=== PATIENT | female | born 2000 | race Caucasian/White ===

== ENCOUNTER 2019-05-05 23:25 | Outpatient (CLI) | payer BC ==
[2019-05-06] VITALS: BP 118/72; PULSE 101; RESP 14; TEMP 98.2
[2019-05-06 00:12] LABS: Amorphous Sediment,Urine Rare /hpf; Appearance,Urine Turbid (Clear); Bacteria,Urine Moderate /hpf; Bilirubin,Urine Negative (Negative); Blood,Urine Negative (Negative); Color,Urine Yellow; Glucose,Urine (UA) 1+ (Negative); Ketones,Urine Trace (Negative); Leukocyte Esterase,Urine Large (Negative); Mucus,Urine Rare /hpf; Nitrite,Urine Negative (Negative); Protein,Urine Trace (Negative); RBC,Urine 4 /hpf (0-5); Specific Gravity,Urine 1.022 (1.001-1.035); Squamous Epithelial Cell,Urine 5 /hpf (0-4); Urobilinogen,Urine <2.0 mg/dL (<2.0); WBC,Urine 25 /hpf (0-5)
[2019-05-06] MEDS ORDERED: CEPHALEXIN 500 MG CAP PO ONE (01:00)
--- NOTE | 2019-05-08 15:07 | P.MSEPDOC ---
Presenting Problems - Arrival Data Date of Arrival on Unit: 05/05/19 Time of Arrival on Unit: 23:25 Mode of Transport: Ambulatory - Complaint OB-Reason for Admission/Chief Complaint: Signs/Symptoms UTI Comment: lower abd/suprapubic pain and pressure Medical History - Information : 2 Para: 0 Term: 0 : 0 Abortions: Spontaneous or Elective: 0 Number of Living Children: 0 - Gestational Age Gestational Age by ADA (wks/days): 35 Weeks and 1 Days - History Comment: DOM Review of Systems - Review of Systems Constitutional: No problems Breast: No problems ENT: No problems Cardiovascular: No problems Respiratory: No problems Gastrointestinal: No problems Genitourinary: No problems Musculoskeletal: No problems Neurological: No problems Skin: No problems Vital Signs - Temperature Temperature: 98.2 F Temperature Source: Temporal Artery Scan - Pulse Right Pulse Rate: 101 Pulse Assessment Method: Pulse Oximetry - Respirations Respiratory Rate: 14 O2 Sat by Pulse Oximetry: 98 - Blood Pressure Right Arm Blood Pressure: 118/72 Blood Pressure Mean: 87 Blood Pressure Source: Automatic Cuff Medical Screen Scoring (Pre) - Cervical Exam Dilation: Exam Deferred Effacement: Exam Deferred Membranes: Intact - Uterine Contractions Frequency: N/A Duration: N/A Intensity: N/A - Maternal Vital Signs Maternal Temperature: N/A Maternal Blood Pressure: N/A Signs of Preeclampsia: N/A Maternal Respirations: N/A - Maternal Trauma Maternal Trauma: N/A - Assessment - Baby A Baseline FHR: 145 Heart Rate - NICHD Category: Category I (Normal) = 0 NST: Reactive Position: N/A - Total Score - Baby A Total Score - Baby A: 0 - Total Score - Baby B Total Score - Baby B: 0 - Total Score - Baby C Total Score - Baby C: 0 - Level of Risk - Baby A Level of Risk - Baby A: Low (0-5) - Level of Risk - Baby B Level of Risk - Baby B: Low (0-5) - Level of Risk - Baby C Level of Risk - Baby C: Low (0-5) Medical Screen Scoring (Post) - Cervical Exam Dilation: Exam Deferred Effacement: Exam Deferred - Uterine Contractions Frequency: N/A - Maternal Vital Signs Maternal Temperature: N/A Maternal Blood Pressure: N/A Signs of Preeclampsia: N/A Maternal Respirations: N/A - Maternal Trauma Maternal Trauma: N/A - Assessment - Baby A Heart Rate: 140 Heart Rate - NICHD Category: Category I (Normal) = 0 NST: Reactive - Total Score Total Score - Baby A: 0 Total Score - Baby B: 0 Total Score - Baby C: 0 - Post Treatment Level of Risk Post Treatment Level of Risk - Baby A: Low (0-5) Physician Notification (Post) - Physician Notified Physician Notified Date: 05/06/19 Physician Notified Time: 00:28 Physician/Practitioner Notified:: Dr Cline - Notification Comment Comment: reported on DOM from [facility]. reported on sharp shooting pelvic pain that has become constant suprapubic pressure for 2 hours. reported on reactive fhts, no cntrx pattern, irritability before voiding, no bleeding or leaking, denies any complications. reported on UA results. Orders to give 1 dose po keflex now, then d/c home with instructions. Dr Cline will call in rx to pharmacy of their choice tomorrwo Disposition - Disposition OB Disposition: Discharge to home Discharge Date: 05/06/19 Discharge Time: 01:15 I agree with the RN Medical Screening Exam: Yes Risk & Benefit of care provided described in d/c instruction: Yes Diagnosis: URINARY TRACT INFECTION, SITE NOT SPECIFIED
== END 2019-05-06 01:15 | disposition home or self-care (01) ==
LOC: FBPOP 23:25
PROVIDERS: ATTEND Obstetrics & Gynecology Obstetrics
DX: O99.89 Other specified diseases and conditions complicating pregnancy, childbirth and the puerperium (principal); N39.0 Urinary tract infection, site not specified; Z3A.35 35 weeks gestation of pregnancy
CPT/HCPCS: 59025; 81001; 99213